=== PATIENT | male | born 1945 | race African-American/Black ===

== ENCOUNTER 2016-12-01 08:06 | Emergency (ER) | payer MEDICARE, BC ==
[~2016-12-01 08:06] MED LIST: BAYER ASPIRIN325 M1 PO; BYDUREON2 MG SQ; CARVEDILOL12.5 MG PO; CO Q-1010 MG PO; CRESTOR PO; FISH OIL 1,0001 EAC1 PO; HUMALOG100 U/M2 SQ; HYDROCODON-ACE1 EAC5 PO; JARDIANCE25 MG PO; KCL PO; LOSARTAN-HCTZ1 EAC3 PO; SUPER B COMPLEX1 CAP PO; VITAMIN D1000 UNI1 PO; ZYRTEC PO
== END 2016-12-01 08:10 | disposition home or self-care (01) ==
LOC: CFTX 08:06
DX: M70.832 Other soft tissue disorders related to use, overuse and pressure, left forearm (principal); I25.10 Atherosclerotic heart disease of native coronary artery without angina pectoris; E11.9 Type 2 diabetes mellitus without complications; Z79.84 Long term (current) use of oral hypoglycemic drugs; Z86.73 Personal history of transient ischemic attack (TIA), and cerebral infarction without residual deficits; Z87.891 Personal history of nicotine dependence
CPT/HCPCS: 99282